=== PATIENT | male | born 1990 | race Caucasian/White ===

== ENCOUNTER 2018-03-19 18:40 | Emergency (ER) | payer BC ==
[2018-03-19] MEDS ORDERED: ACETAMINOPHEN 325 MG TAB PO ONE (19:02)
--- NOTE | 2018-03-19 19:05 | Emergency Department Record ---
History of Present Illness - General Chief complaint: Head Injury Stated complaint: HIT HIS HEAD WITH A HAMMER Time Seen by Provider: 03/19/18 18:55 Source: Patient Mode of Arrival: Ambulatory Limitations: No limitations - History of Present Illness Initial comments: The patient is here due to getting hit in the head yesterday by a hammer that fell off a ladder. It hit him in the L parietal area. There was no LOC. Today he still has a CHAPMAN and is mildly nauseated and feels drowsy. There has been no confusion, posterior neck pain, balance issues or vomiting. MD Complaint: Head injury Onset/Timin -: Days(s) Mechanism of Injury: Mechanical fall Location: Parietal Loss of Consciousness: No Place: Work Radiation: Neck Severity scale (1-10): 3 Quality: Aching Consistency: Constant Other Injuries: None Associated Symptoms: Neck pain, Vertigo, Other - Related Data Home Medications Medication Instructions Recorded Confirmed Last Taken No Home Med [NO HOME MEDS] 03/19/18 03/19/18 Unknown Allergies/Adverse reactions: Allergies Allergy/AdvReac Type Severity Reaction Status Date / Time No Known Drug Allergies Allergy Verified 03/19/18 19:03 Travel Screening - Travel/Exposure Within Last 30 Days Have you traveled within the last 30 days?: No - Travel/Exposure Within Last Year Have you traveled outside the [place] in the last year?: No - Additonal Travel Details Have you been exposed to anyone with a communicable illness?: No - Travel Symptoms Symptom Screening: None Review of Systems Constitutional: Denies: Chills, Fever Eyes: Denies: Eye discharge ENT: Denies: Congestion Respiratory: Denies: Dyspnea Past Medical History - SOCIAL HISTORY Smoking Status: Never smoker Alcohol Use: Occasional Drug Use: Occasional Drug Use Detail:: Marijuana - RESPIRATORY Hx Respiratory Disorders: Yes Hx Bronchitis: Yes - CARDIOVASCULAR Hx Cardio Disorders: No - NEURO Hx Neuro Disorders: No - GI Hx GI Disorders: No - Hx Genitourinary Disorders: No - ENDOCRINE Hx Endocrine Disorders: No - MUSCULOSKELETAL Hx Musculoskeletal Disorders: Yes Comment:: hip problems - PSYCH Hx Psych Problems: Yes Hx Anxiety: Yes Hx Depression: Yes - HEMATOLOGY/ONCOLOGY Hx Hematology/Oncology Disorders: No Family Medical History Any Significant Family History?: No Hx Cancer: Grandparents Hx Diabetes: Grandparents Physical Exam - General General Appearance: Alert, Oriented x3, Cooperative, No acute distress - Head Head exam: Normocephalic. negative: Atraumatic, Normal inspection (There is a mild contusion over the L parietal scalp area with tenderness.) - Eye Eye exam: Normal appearance, PERRL - Neck Neck exam: Normal inspection, Full ROM. negative: Tenderness - Respiratory Respiratory exam: Normal lung sounds bilaterally. negative: Respiratory distress - Cardiovascular Cardiovascular Exam: Regular rate, Normal rhythm, Normal heart sounds - GI/Abdominal GI/Abdominal exam: Soft, Normal bowel sounds. negative: Tenderness - Extremities Extremities exam: Normal inspection, Full ROM, Normal capillary refill. negative: Tenderness - Neurological Neurological exam: Alert, Normal gait, Oriented X3, Other (Neg Drift and Rhomberg exams.). negative: Abnormal gait, Altered, Motor sensory deficit - Psychiatric Psychiatric exam: negative: Anxious - Skin Skin exam: negative: Rash Course Vital Signs 03/19/18 18:51 Temperature 98.6 F Pulse Rate [ 76 Pulse Ox Probe] Respiratory 16 Rate Blood Pressure 141/92 [Left Arm] Pulse Ox 97 - Reevaluation(s) Reevaluation #1: I did discuss the neg CT with the patient and the need for F/U if not better. He is doing better and would like to go home. 03/19/18 20:40 03/19/18 20:45 Medical Decision Making - Data Complexity MDM Data: X-Ray Ordered and/or Reviewed - Radiology Data Radiology results: Report reviewed (Head CT: Neg per Rad.) Disposition Disposition: Discharge Clinical Impression: Head injury due to trauma Qualifiers: Encounter type: initial encounter Qualified Code(s): S09.90XA - Unspecified injury of head, initial encounter Disposition: Home, Self-Care Condition: (2) Stable Instructions: Concussion (ED) Additional Instructions: Please use Tylenol or Motrin for pain. Rest when possible. Please see your family doctor if not better in 3 days. Return to the ER for any worsening symptoms. Forms: Patient Portal Access Time of Disposition: 20:40 Quality - Quality Measures Quality Measures: N/A, Blunt Head Trauma (>2yr) - Blunt Head Trauma - Adult Quality Measure: Measure #415: Utilization of CT for Minor Blunt Head Trauma ICD10 Codes Entered: Yes View Details: Yes Was CT ordered: Yes Does Patient Have Any of the Following: No Exclusions Patient Presented Within 24 Hours of Injury: No Durga Score: Please complete Durga Coma Scale above Utilization of CT for Minor Blunt Head Trauma: Not Eligible For Measure Additional Inclusion Criteria: Within 24hrs (AND) GCS of 15 (AND) CT ordered. [ G9530] Indications For CT: Trauma Above the Clavicles w/Loss of Consciousness Not Eligible Reason: Injury Greater Than 24 Hours Ago - Blood Pressure Screening View Details: Yes Does Patient Have Any of the Following: No Blood Pressure Classification: Pre-Hypertensive BP Reading Systolic Measurement: 121 Diastolic Measurement: 86 Screening for High Blood Pressure: < Pre-Hypertensive BP, F/U Documented > [ G8950] Pre-Hypertensive Follow-up Interventions: Referral to alternative/primary care provider.
[2018-03-19] MEDS ORDERED: IBUPROFEN 600 MG TABLET PO ONE (19:06)
== END 2018-03-19 20:50 | disposition home or self-care (01) ==
LOC: ER 18:40
DX: S09.90XA Unspecified injury of head, initial encounter (principal); R51 Headache; R11.0 Nausea; M54.2 Cervicalgia; R42 Dizziness and giddiness; W22.8XXA Striking against or struck by other objects, initial encounter; Y99.0 Civilian activity done for income or pay
CPT/HCPCS: 70450; 99283

== ENCOUNTER 2019-08-24 18:51 | Emergency (ER) | payer BC, MEDICAID ==
--- NOTE | 2019-08-24 19:22 | Emergency Department Record ---
History of Present Illness - General Chief Complaint: Chest Pain Stated Complaint: CHEST PAIN Time Seen by Provider: 08/24/19 19:11 Source: Patient Mode of Arrival: Ambulatory Limitations: No limitations - History of Present Illness Initial Comments: The patient is here due to having vague chest discomfort for the last 2 years with anxiety. He has had a long hx of anxiety and did stop his medicines recently. Now for the last 4 days the patient seems to have had worsening symptoms. Four days ago he had palpitations with mild pain that lasted a few min utes and he may have passed out. Since he has had mild discomfort with mild PHOEBE associated with worsening anxiety. The patient has had these symptoms off and on for at least 2 years but the palpitations seem to be worse recently. Today he has had mild PHOEBE also but that has resolved. He has no hx of WISDOM, PND, or CP with exertion. The patient has no cardiac risk factors. MD Complaint: Chest pain Onset/Timin -: Year(s) Onset: Other Pain Location: Substernal Pain Radiation: None Severity: Moderate Severity scale (1-10): 4 Consistency: Intermittent Worsens With: Exertion, Other Treatments Prior to Arrival: None - Related Data Allergies Allergy/AdvReac Type Severity Reaction Status Date / Time No Known Drug Allergies Allergy Verified 03/19/18 19:03 Travel/Exposure Screening - Travel/Exposure Within Last 30 Days Have you traveled within the last 30 days?: No - Additonal Travel/Exposure Details Have you been exposed to anyone with a communicable illness?: No - Travel Symptoms Symptom Screening: None Review of Systems Constitutional: Denies: Chills, Fever Eyes: Denies: Eye discharge ENT: Denies: Congestion Respiratory: Reports: Dyspnea. Denies: Cough Cardiovascular: Reports: Chest pain, Palpitations. Denies: Dyspnea on exertion Endocrine: Reports: Fatigue Gastrointestinal: Denies: Diarrhea Genitourinary: Denies: Dysuria Musculoskeletal: Denies: Arthralgia Neurological: Denies: Abnormal gait Past Medical History - SOCIAL HISTORY Smoking Status: Never smoker Alcohol Use: Occasional Drug Use: Heavy Drug Use Detail:: Marijuana - RESPIRATORY Hx Respiratory Disorders: Yes Hx Bronchitis: Yes - CARDIOVASCULAR Hx Cardio Disorders: Yes Hx Hypertension: Yes - NEURO Hx Neuro Disorders: No - GI Hx GI Disorders: No - Hx Genitourinary Disorders: No - ENDOCRINE Hx Endocrine Disorders: No - MUSCULOSKELETAL Hx Musculoskeletal Disorders: Yes Comment:: hip problems - PSYCH Hx Psych Problems: Yes Hx Anxiety: Yes Hx Depression: Yes - HEMATOLOGY/ONCOLOGY Hx Hematology/Oncology Disorders: No Family Medical History Any Significant Family History?: Yes Hx Cancer: Grandparents Hx Diabetes: Grandparents Physical Exam - General General Appearance: Alert, Oriented x3, Cooperative, No acute distress - Head Head exam: Atraumatic, Normocephalic, Normal inspection - Eye Eye exam: Normal appearance, PERRL. negative: Conjunctival injection - ENT Throat exam: Normal inspection. negative: Tonsillar erythema, Tonsillar exudate - Neck Neck exam: Normal inspection, Full ROM. negative: Tenderness - Respiratory Respiratory exam: Normal lung sounds bilaterally. negative: Respiratory distres s - Cardiovascular Cardiovascular Exam: Regular rate, Normal rhythm, Normal heart sounds. negative: Diastolic murmur, Systolic murmur - GI/Abdominal GI/Abdominal exam: Soft, Normal bowel sounds. negative: Tenderness - Extremities Extremities exam: Normal inspection, Full ROM, Normal capillary refill. negative: Tenderness - Neurological Neurological exam: Alert. negative: Motor sensory deficit Course Vital Signs 08/24/19 08/24/19 19:04 19:17 Temperature 97.7 F Pulse Rate [ 108 H Right] Respiratory 20 Rate Blood Pressure 156/108 [Left] Pulse Ox 100 - Reevaluation(s) Reevaluation #1: The patient is doing a lot better at this time. He was sleeping when I entered the room. I did discuss the normal EKG, CXR, and lab results with the patient. It appears that the patient's issues are clearly related to his anxiety. He is to see a PCP next week for recheck and to restart anti-anxiety medicines. 08/24/19 20:19 Medical Decision Making - Data Complexity MDM Data: Labs Ordered and/or Reviewed, X-Ray Ordered and/or Reviewed, EKG Ordered and/or Reviewed - Lab Data Result diagrams: 08/24/19 19:35 08/24/19 19:35 - EKG Data -: EKG Interpreted by Me EKG: No Acute Changes, Normal EKG - Radiology Data Radiology results: Report reviewed (CXR: Neg) Disposition Disposition: Discharge Clinical Impression: Anxiety Disposition: Home, Self-Care Condition: (2) Stable Instructions: Generalized Anxiety Disorder (ED) Additional Instructions: Please see a family doctor next week for recheck and to possibly restart some anti anxiety medicines. Please return to the ER for any worsening issues. Forms: Patient Portal Access Time of Disposition: 20:21 Quality - Quality Measures Quality Measures: N/A - Blood Pressure Screening View Details: Yes Does Patient Have Any of the Following: No Blood Pressure Classification: Hypertensive Reading Systolic Measurement: 138 Diastolic Measurement: 91 Screening for High Blood Pressure: < First Hypertensive BP, F/U Documented > [G8950] First Hypertensive Follow-up Interventions: Referral to alternative/primary care provider.
[2019-08-24] MEDS: ACETAMINOPHEN 325 MG TAB PO ONE ×2 (19:27→19:28)
[2019-08-24 19:48] LABS: HEMATOCRIT 43.1 % (42.0-52.0); HEMOGLOBIN 13.6 gm/dl (14.0-18.0); MEAN CELL VOLUME 86.9 fl (81-97); MEAN CORPUSCULAR HEMOGLOBIN 27.4 pg (27-33); MEAN CORPUSCULAR HGB CONC 31.6 g/dl (32-36); MEAN PLATELET VOLUME 11.9 fl (7.4-10.4); PLATELET COUNT 273 K/uL (130-400); RED BLOOD COUNT 4.96 M/uL (4.40-5.70); RED CELL DISTRIBUTION WIDTH 13.3 % (11.5-14.5); WHITE BLOOD COUNT W/O DIFF 8.2 K/uL (4.2-12.2)
[2019-08-24 19:55] LABS: BLOOD UREA NITROGEN 18 mg/dL (6-20); CREATININE 0.9 mg/dL (0.7-1.2); EST GLOMERULAR FILTRATION RATE > 60 mL/min
[2019-08-24 19:56] LABS: TOTAL PROTEIN 7.1 g/dL (6.6-8.7)
[2019-08-24 19:58] LABS: GLUCOSE,RANDOM 96 mg/dL (74-109)
[2019-08-24 20:00] LABS: ALB/GLOB RATIO 1.7 (1.1-1.8); ALBUMIN 4.5 g/dL (4.0-5.0); ALKALINE PHOSPHATASE 67 U/L (40-129); ALT/SGPT 22 U/L (<41); AST/SGOT 22 U/L (10.0-50.0)
--- NOTE | 2019-08-24 20:11 | RADIOLOGY REPORT ---
EXAMINATION: Two View Chest Radiographs EXAM DATE: 08/24/2019 7:58 PM TECHNIQUE: Frontal and lateral views INDICATION: PHOEBE COMPARISON: None ENCOUNTER: Not applicable FINDINGS: The heart, mediastinum, and pulmonary vasculature are normal. No lung consolidation or pleural effu sions are present. IMPRESSION: Negative for active intrathoracic disease Dictated by: Ena Walsh MD on 08/24/2019 8:02 PM. .
[2019-08-24 20:29] LABS: PLATELET ESTIMATE NORMAL (NORMAL)
== END 2019-08-24 20:28 | disposition home or self-care (01) ==
LOC: ER 18:51
DX: R07.2 Precordial pain (principal); F41.9 Anxiety disorder, unspecified; R06.00 Dyspnea, unspecified; I10 Essential (primary) hypertension
CPT/HCPCS: 71046; 80053; 84484; 85027; 93005; 93010; 99284